=== PATIENT | female | born 1960 | race Asian ===

== ENCOUNTER 2020-05-05 09:23 | Emergency (ER) | payer OTHER, BC ==
--- NOTE | 2020-05-05 09:48 | EDM.PDOC ---
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 - Related Data Allergies Allergy/AdvReac Type Severity Reaction Status Date / Time No Known Allergies Allergy Verified 05/05/20 09:45 Home Meds: Home Meds Levothyroxine Sodium 112 mcg PO DAILY 07/29/16 [History] Albuterol Sulfate [Proair Hfa] 2 puff IH Q4H PRN 07/30/16 [History] FLUoxetine HCl [Fluoxetine HCl] 40 mg PO DAILY 07/30/16 [History] Fluticasone/Vilanterol [Breo Ellipta 200-25 MCG Inhalation Kit] 1 puff IH DAILY 07/30/16 [History] Hydrochlorothiazide 12.5 mg PO DAILY 07/30/16 [History] Lisinopril 20 mg PO DAILY 07/30/16 [History] Montelukast Sodium 10 mg PO DAILY 07/30/16 [History] Omeprazole 40 mg PO ACBREAKFAST 07/30/16 [History] Albuterol/Ipratropium [Combivent Respimat] 2 puff BID 05/05/20 [History] Estrogens, Conjugated [Premarin Vaginal Crm] 1 applic BID 05/05/20 [History] Past Medical History Cardiovascular History: Reports: Hypertension Respiratory History: Reports: Asthma, SOB 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 History: Reports: GERD 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: , 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 Psychiatric History: Reports: Depression Endocrine/Metabolic History: Reports: Hyperthyroidism - Infectious Disease History Infectious Disease History: Reports: Chicken Pox, Measles, Mumps, Shingles - Past Surgical History GI Surgical History: Reports: Appendectomy, Other (See Below) Female Surgical History: Reports: Section Social & Family History - Family History Family Medical History: Noncontributory - Caffeine Use Caffeine Use: Reports: Coffee, Tea ED ROS GENERAL - Review of Systems Review Of Systems: See Below Constitutional: Reports: No Symptoms, Fatigue Respiratory: Reports: Shortness of Breath, Wheezing, Cough Cardiovascular: Reports: No Symptoms GI/Abdominal: Reports: No Symptoms : Reports: No Symptoms Musculoskeletal: Reports: No Symptoms Skin: Reports: No Symptoms ED EXAM, GENERAL - Physical Exam Exam: See Below Exam Limited By: No Limitations General Appearance: Anxious, Mild Distress, Moderate Distress Eye Exam: Bilateral Eye: Normal Inspection Nose: Normal Inspection Throat/Mouth: Normal Inspection, Normal Oropharynx Head: Atraumatic, Normocephalic Neck: Normal Inspection, Supple, Non-Tender Respiratory/Chest: No Respiratory Distress, Wheezing. No: Crackles, Stridor Cardiovascular: Normal Peripheral Pulses, Regular Rate, Rhythm GI/Abdominal: Normal Bowel Sounds, Soft, Non-Tender Neurological: Alert, Oriented, CN II-XII Intact, Normal Reflexes, No Motor/Sensory Deficits Skin Exam: Warm, No Rash Course - Vital Signs Text/Narrative:: pt was given solumedrol , Benadryl , nebs and epi by EMS, she is now feeling fine and back to usual self. CXR is clear , labs are unremarkable. pt has stable vitals and nl sats, this has been recurrent and seems to be related to work place. pt had an episode of bronchospasm related to her asthma and a likely allergic reaction, this has resolved now and pt is stable for discharge home , she is to continue with current asthma medication and follow with PCP early this week for allergy testing . Last Recorded V/S: Last Vital Signs Temp 35.9 C L 05/05/20 09:45 Pulse 76 05/05/20 09:45 Resp 26 H 05/05/20 09:45 BP 152/136 H 05/05/20 09:45 Pulse Ox - Orders/Labs/Meds Orders: Active Orders 24 hr Category Date Time Status EKG Documentation Completion [RC] ASDIRECTED Care 05/05/20 09:49 Active EKG 12 Lead [EK] Routine Ther 05/05/20 09:48 Ordered Labs: Laboratory Tests 05/05/20 05/05/20 05/05/20 Range/Units 09:35 09:35 09:35 WBC 6.7 (4.5-12.0) X10-3/uL RBC 3.98 (3.23-5.20) x10(6)uL Hgb 12.5 (11.5-15.5) g/dL Hct 38.0 (30.0-51.3) % MCV 95.5 (80-96) fL MCH 31.5 (27.7-33.6) pg MCHC 33.0 (32.2-35.4) g/dL RDW 12.7 (11.5-15.5) % Plt Count 319 (125-369) X10(3)uL D-Dimer, Quantitative (0.0-0.59) mg/LFEU Sodium 141 (135-145) mmol/L Potassium 3.2 L (3.5-5.3) mmol/L Chloride 101 (100-110) mmol/L Carbon Dioxide 27 (21-32) mmol/L BUN 14 (7-18) mg/dL Creatinine 1.1 H (0.55-1.02) mg/dL Est Cr Clr Drug Dosing 40.53 mL/min Estimated GFR (MDRD) 50 L (>60) BUN/Creatinine Ratio 12.7 (9-20) Glucose 205 H (80-116) mg/dL Calcium 9.3 (8.6-10.2) mg/dL Total Bilirubin 0.4 (0.1-1.3) mg/dL AST 57 H (5-25) IU/L ALT 57 H (12-36) U/L Alkaline Phosphatase 81 (56-112) IU/L Troponin I 10.8 (4.0-60.3) pg/mL Total Protein 7.6 (6.0-8.0) g/dL Albumin 3.9 (3.2-4.6) g/dL Globulin 3.7 g/dL Albumin/Globulin Ratio 1.1 05/05/20 Range/Units 10:35 WBC (4.5-12.0) X10-3/uL RBC (3.23-5.20) x10(6)uL Hgb (11.5-15.5) g/dL Hct (30.0-51.3) % MCV (80-96) fL MCH (27.7-33.6) pg MCHC (32.2-35.4) g/dL RDW (11.5-15.5) % Plt Count (125-369) X10(3)uL D-Dimer, Quantitative 0.61 H (0.0-0.59) mg/LFEU Sodium (135-145) mmol/L Potassium (3.5-5.3) mmol/L Chloride (100-110) mmol/L Carbon Dioxide (21-32) mmol/L BUN (7-18) mg/dL Creatinine (0.55-1.02) mg/dL Est Cr Clr Drug Dosing mL/min Estimated GFR (MDRD) (>60) BUN/Creatinine Ratio (9-20) Glucose (80-116) mg/dL Calcium (8.6-10.2) mg/dL Total Bilirubin (0.1-1.3) mg/dL AST (5-25) IU/L ALT (12-36) U/L Alkaline Phosphatase (56-112) IU/L Troponin I (4.0-60.3) pg/mL Total Protein (6.0-8.0) g/dL Albumin (3.2-4.6) g/dL Globulin g/dL Albumin/Globulin Ratio Departure - Departure Time of Disposition: 11:28 Disposition: Home, Self-Care 01 Clinical Impression: Asthma attack - Discharge Information Referrals: PCP,None [Ordering Only Provider] - Sepsis Event Note (ED) - Focused Exam Vital Signs: Vital Signs Temp Pulse Resp BP 05/05/20 09:45 35.9 C L 76 26 H 152/136 H - My Orders Last 24 Hours: My Active Orders 05/05/20 09:48 EKG 12 Lead [EK] Routine 05/05/20 09:49 EKG Documentation Completion [RC] ASDIRECTED - Assessment/Plan Last 24 Hours: My Active Orders 05/05/20 09:48 EKG 12 Lead [EK] Routine 05/05/20 09:49 EKG Documentation Completion [RC] ASDIRECTED
--- NOTE | 2020-05-05 10:34 | CR ---
INDICATION: Short of breath. CHEST, ONE VIEW: AP upright portable view of the chest was obtained 05/05/20 - no comparison. Overlying EKG leads are noted. The heart did not appear grossly enlarged. The aorta is tortuous with calcification in the arch. A definite active infiltrate or effusion was not identified. IMPRESSION: No acute process. MTDD
[2020-05-05 17:14] VITALS: BP 109/68; PULSE 83
== END 2020-05-05 12:00 | disposition home or self-care (01) ==
LOC: FB.ED 09:23
DX: J45.909 Unspecified asthma, uncomplicated (principal); I10 Essential (primary) hypertension; K21.9 Gastro-esophageal reflux disease without esophagitis; F32.9 Major depressive disorder, single episode, unspecified; E05.90 Thyrotoxicosis, unspecified without thyrotoxic crisis or storm; Z98.890 Other specified postprocedural states; Z79.899 Other long term (current) drug therapy
CPT/HCPCS: 36415; 71045; 80053; 84484; 85027; 85379; 93005; 99283; 99285-25

== ENCOUNTER 2021-06-15 08:41 | Emergency (ER) | payer BC ==
[2021-06-15] MEDS ORDERED: Albuterol/Ipratropium 3.0-0.5 MG/3 ML Neb Soln NEB ONE (08:48)
[2021-06-15] MEDS ORDERED: methylPREDNISolone Sodium Succinate 125 MG/2 ML SDV IM ONE (08:49)
[2021-06-15 09:24] VITALS: BP 129/74; PULSE 65
--- NOTE | 2021-06-15 09:40 | EDM.PDOC ---
ED HPI GENERAL MEDICAL PROBLEM - General Chief Complaint: Asthma Stated Complaint: DIFFICULTY BREATHING Time Seen by Provider: 06/15/21 08:55 Source of Information: Reports: Patient History Limitations: Reports: No Limitations - History of Present Illness INITIAL COMMENTS - FREE TEXT/NARRATIVE: Patient presented to the ED via EMS because of dyspnea while at work. 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 She was given epi and neb treatment prior to her arrival in the ED. She also has cough and cold for 2 days, there is no fever or chills. Treatments NOTE TAKER: Reports: Breathing Treatments, Other Medication(s) Other Treatments NOTE TAKER: Epi pen - Related Data Allergies Allergy/AdvReac Type Severity Reaction Status Date / Time No Known Allergies Allergy Verified 05/05/20 09:45 Home Meds: Home Meds Levothyroxine Sodium 112 mcg PO DAILY 07/29/16 [History] Albuterol Sulfate [Proair Hfa] 2 puff IH Q4H PRN 07/30/16 [History] FLUoxetine HCl [Fluoxetine HCl] 40 mg PO DAILY 07/30/16 [History] Fluticasone/Vilanterol [Breo Ellipta 200-25 MCG Inhalation Kit] 1 puff IH DAILY 07/30/16 [History] Hydrochlorothiazide 12.5 mg PO DAILY 07/30/16 [History] Lisinopril 20 mg PO DAILY 07/30/16 [History] Montelukast Sodium 10 mg PO DAILY 07/30/16 [History] Omeprazole 40 mg PO ACBREAKFAST 07/30/16 [History] Albuterol/Ipratropium [Combivent Respimat] 2 puff BID 05/05/20 [History] Estrogens, Conjugated [Premarin Vaginal Crm] 1 applic BID 05/05/20 [History] Azithromycin [Zithromax] 500 mg PO DAILY #5 tab 06/15/21 [Rx] predniSONE [Prednisone] 40 mg PO DAILY #10 tablet 06/15/21 [Rx] Past Medical History Cardiovascular History: Reports: Hypertension Respiratory History: Reports: Asthma, SOB 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 History: Reports: GERD Genitourinary History: Reports: None 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: , 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 Psychiatric History: Reports: Depression Endocrine/Metabolic History: Reports: Hyperthyroidism - Infectious Disease History Infectious Disease History: Reports: Chicken Pox, Measles, Mumps, Shingles - Past Surgical History HEENT Surgical History: Reports: Tonsillectomy GI Surgical History: Reports: Appendectomy, Other (See Below) Other GI Surgeries/Procedures: SECTION Female Surgical History: Reports: Section Other Female Surgeries/Procedures: CS x 1 Endocrine Surgical History: Reports: Thyroidectomy Social & Family History - Family History Family Medical History: No Pertinent Family History - Tobacco Use Tobacco Use Status *Q: Never Tobacco User - Caffeine Use Caffeine Use: Reports: Coffee ED ROS GENERAL - Review of Systems Review Of Systems: See Below Constitutional: Reports: No Symptoms HEENT: Reports: No Symptoms Respiratory: Reports: Shortness of Breath, Cough Cardiovascular: Reports: Dyspnea on Exertion Endocrine: Reports: No Symptoms GI/Abdominal: Reports: No Symptoms : Reports: No Symptoms Musculoskeletal: Reports: No Symptoms Skin: Reports: No Symptoms Neurological: Reports: No Symptoms Psychiatric: Reports: No Symptoms ED EXAM, GENERAL - Physical Exam Exam: See Below Exam Limited By: No Limitations General Appearance: Alert, No Apparent Distress Ears: Normal External Exam, Normal Canal, Hearing Grossly Normal Nose: Normal Inspection, Normal Mucosa, No Blood Throat/Mouth: Normal Inspection, Normal Lips, Normal Teeth, Normal Gums, Normal Oropharynx, Normal Voice Head: Atraumatic, Normocephalic Neck: Normal Inspection, Supple, Non-Tender, Full Range of Motion Respiratory/Chest: No Respiratory Distress, Rhonchi, Wheezing Cardiovascular: Normal Peripheral Pulses, Regular Rate, Rhythm, No Edema, No Gallop, No JVD, No Murmur, No Rub GI/Abdominal: Normal Bowel Sounds, Soft, Non-Tender, No Organomegaly Back Exam: Normal Inspection, Full Range of Motion Extremities: Normal Inspection, Normal Range of Motion, Non-Tender, No Pedal Edema, Normal Capillary Refill Neurological: Alert, Oriented, CN II-XII Intact, Normal Cognition, Normal Gait, Normal Reflexes, No Motor/Sensory Deficits Course - Vital Signs Text/Narrative:: CXR-see result Duoneb x1 Solumedrol 125 mg IM x1 Her oxygen saturation was 98% on RA prior to discharge and is better. Last Recorded V/S: Last Vital Signs Temp 36.2 C 06/15/21 09:12 Pulse 65 06/15/21 09:23 Resp 15 06/15/21 09:23 BP 129/74 06/15/21 09:23 Pulse Ox 98 06/15/21 09:23 - Orders/Labs/Meds Orders: Active Orders 24 hr Category Date Time Status RT Aerosol Therapy [RC] ASDIRECTED Care 06/15/21 08:49 Active Chest 1V Frontal [CR] Stat Exams 06/15/21 08:49 Taken Meds: Medications Discontinued Medications Generic Name Dose Route Start Last Admin Trade Name Yuriy PRN Reason Stop Dose Admin Albuterol/Ipratropium 3 ml 06/15/21 08:48 06/15/21 08:53 Albuterol/Ipratropium 3.0-0.5 Mg/3 Ml Neb Soln NEB 06/15/21 08:49 3 ml ONETIME ONE Administration Methylprednisolone Sodium Succinate 125 mg 06/15/21 08:49 06/15/21 08:52 Methylprednisolone Sodium Succinate 125 Mg/2 Ml Sdv IM 06/15/21 08:50 125 mg ONETIME ONE Administration Departure - Departure Time of Disposition: 09:45 Disposition: Home, Self-Care 01 Condition: Good Clinical Impression: Asthma exacerbation - Discharge Information Prescriptions: predniSONE [Prednisone] 40 mg PO DAILY #10 tablet Azithromycin [Zithromax] 500 mg PO DAILY #5 tab Instructions: Asthma, Adult, [id number] Referrals: Nancy Jerome MD [Primary Care Provider] - Forms: ED Department Discharge Additional Instructions: Please read discharge instructions on Asthma exacerbation(flare up) Increase oral fluids Zithromax 500 mg daily for 5 days starting today Prednisone 20 mg, 2 tablets daily for 5 days starting today Follow up as needed Sepsis Event Note (ED) - Evaluation Sepsis Screening Result: No Definite Risk - Focused Exam Vital Signs: Vital Signs Temp Pulse Resp BP Pulse Ox Pulse Ox 06/15/21 09:23 65 15 129/74 98 06/15/21 09:12 36.2 C 73 20 144/82 H 96 06/15/21 08:49 94 L - My Orders Last 24 Hours: My Active Orders 06/15/21 08:49 RT Aerosol Therapy [RC] ASDIRECTED Chest 1V Frontal [CR] Stat - Assessment/Plan Last 24 Hours: My Active Orders 06/15/21 08:49 RT Aerosol Therapy [RC] ASDIRECTED Chest 1V Frontal [CR] Stat
== END 2021-06-15 09:51 | disposition home or self-care (01) ==
LOC: FB.ED 08:41
DX: J45.901 Unspecified asthma with (acute) exacerbation (principal); K21.9 Gastro-esophageal reflux disease without esophagitis; E05.90 Thyrotoxicosis, unspecified without thyrotoxic crisis or storm; Z79.899 Other long term (current) drug therapy
CPT/HCPCS: 71045; 94640; J2930; 96372; 99285-25; J7620-GY